=== PATIENT | male | born 1945 | race Caucasian/White ===

== ENCOUNTER 2020-09-02 08:19 | Day surgery (SDC) | payer MEDICARE ==
[2020-08-31 11:42] VITALS: BMI 26.7
[2020-09-02 09:12] LABS: Hemoglobin 15.7 g/dL (14.0-18.0)
[2020-09-02] MEDS ORDERED: ePHEDrine 50 MG/ML VIAL ONE (09:33)
[2020-09-02] MEDS ORDERED: Rocuronium Bromide 10 MG/ML (10ML VIAL) ONE (09:33)
[2020-09-02] MEDS ORDERED: PROPOFOL 200 MG/20 ML VIAL ONE (09:33)
[2020-09-02] MEDS ORDERED: Glycopyrrolate 0.2 MG/ML 5 ML SYRINGE ONE (09:33)
[2020-09-02] MEDS ORDERED: Ondansetron PF 4 MG/2 ML Vial ONE (09:33)
[2020-09-02] MEDS ORDERED: Lidocaine 1% PF 5 ML VIAL ONE (09:33)
[2020-09-02] MEDS ORDERED: PHENYLEPHRINE-NS 100 MCG/ML 10 ML SYRINGE ONE (09:33)
[2020-09-02] MEDS ORDERED: Bacitracin Zinc Ointment 30 gm TUBE ONE (10:44)
[2020-09-02] MEDS ORDERED: EPINEPHrine 1 MG/ML AMP ONE (10:44)
[2020-09-02] MEDS ORDERED: Ciprofloxacin 0.2% Otic (0.25ML CONTAINER) ONE (10:44)
[2020-09-02] MEDS ORDERED: Lidocaine 1% (PF) 30 ML VIAL ONE (10:44)
[2020-09-02] MEDS ORDERED: Fentanyl 100 MCG/2 ML VIAL ONE (10:53)
[2020-09-02] MEDS ORDERED: Midazolam HCl 2 mg/2 ml Vial ONE (10:53)
[2020-09-02] MEDS ORDERED: Promethazine HCl 25 MG/ML VIAL ONE (13:07)
--- NOTE | 2020-09-03 12:33 | EKG ---
Test Reason : PREOP Blood Pressure : / mmHG Vent. Rate : 075 BPM Atrial Rate : 075 BPM P-R Int : 172 ms QRS Dur : 100 ms QT Int : 430 ms P-R-T Axes : 069 038 116 degrees QTc Int : 480 ms Normal sinus rhythm Non-specific intra-ventricular conduction delay Prolonged QT Abnormal ECG No previous ECGs available Confirmed by URBANO LUTZ ([id number]) on 09/03/2020 12:32:38 PM Referred By: MARY Confirmed By:URBANO LUTZ
--- NOTE | 2020-09-03 13:14 | OP ---
DATE OF PROCEDURE: 09/02/2020 PREOPERATIVE DIAGNOSES: Left chronic otitis media, left otorrhea, left tympanic membrane perforation. POSTOPERATIVE DIAGNOSES: Left chronic otitis media, left otorrhea, left tympanic membrane perforation. PROCEDURE PERFORMED: Left tympanomastoidectomy with 2 hours of facial nerve monitoring. 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 A complete mastoidectomy was performed in addition to tympanic membrane repair using temporalis fascia. DESCRIPTION OF PROCEDURE: The patient was identified and brought to the operating room, placed on the operative table in supine position. General endotracheal anesthesia was obtained. The patient was positioned for surgery. A standard canal injection was done with 1% lidocaine and 1:50,000 epinephrine. We also created a postauricular injection at that time. The patient was then prepped and draped in sterile fashion and the facial nerve monitor was placed in the orbicularis andrea and orbicularis oculi and documented to be functioning well. We then proceeded with making a postauricular incision and carrying the incision down to the periosteum through the postauricular muscles. Under microscopic visualization, we visualized the tympanic membrane and beaded the marginal epithelium with a straight pick and removed that, allowing for fresh edges along the perforation. We then made a periosteal incision and started to create a tympanomeatal flap. Transcutaneous incision was made in the posterior canal skin that allowed for retraction anteriorly with a Celio catheter and a regular retracting clamp. This then allowed for vertical incisions to be made along the inferior and superior aspects of the tympanomeatal flap and dissection down to the annulus, which was elevated, allowing for access to the middle ear space. The adhesions were removed from both the malleus and the incus and stapes at that time once visualization was allowed. There was dense middle ear disease and the area was copiously irrigated and suctioned. We then turned our attention and placed a cotton ball in the external canal and turned our attention to performing a complete mastoidectomy. The mastoidectomy included the tip of the mastoid and extended down to the lateral sinus and tegmen. Ultimately, the attic was entered by way superiorly, and good ventilation and irrigation were obtained to the middle ear after granulation tissue was removed around the head of the incus. We then placed the underlay graft under the tympanomeatal flap and filled the middle ear space with Cortisporin saturated Gelfoam. The mastoid was also treated with Gelfoam and otic drops. The tympanomeatal flap was then replaced and the external canal packed with moist Gelfoam. The periosteal flap was closed as was the postauricular incision with particular care to reapproximate the postauricular muscles. Sterile dressing was applied as was a Jazmin. The remainder of the external canal was filled bacitracin and a cotton ball was placed in the external meatus. The patient was awakened and extubated and taken to the recovery room in a stable condition to discharge home. Job ID: [id number]
== END 2020-09-02 14:05 | disposition home or self-care (01) ==
LOC: SDC 08:19
PROVIDERS: ATTEND Specialist
PROC: 0NB60ZZ Excision of Left Temporal Bone, Open Approach (ICD-10-PCS; principal; 2020-09-02)
DX: H66.92 Otitis media, unspecified, left ear (principal); H72.92 Unspecified perforation of tympanic membrane, left ear; H91.90 Unspecified hearing loss, unspecified ear; I25.10 Atherosclerotic heart disease of native coronary artery without angina pectoris; I13.0 Hypertensive heart and chronic kidney disease with heart failure and stage 1 through stage 4 chronic kidney disease, or unspecified chronic kidney disease; E11.22 Type 2 diabetes mellitus with diabetic chronic kidney disease; N18.9 Chronic kidney disease, unspecified; I50.9 Heart failure, unspecified; I25.2 Old myocardial infarction; E78.5 Hyperlipidemia, unspecified; F41.9 Anxiety disorder, unspecified; M19.90 Unspecified osteoarthritis, unspecified site; Z79.01 Long term (current) use of anticoagulants; Z79.82 Long term (current) use of aspirin; Z79.84 Long term (current) use of oral hypoglycemic drugs; Z79.899 Other long term (current) drug therapy; Z86.73 Personal history of transient ischemic attack (TIA), and cerebral infarction without residual deficits; Z87.891 Personal history of nicotine dependence; Z95.1 Presence of aortocoronary bypass graft; Z96.652 Presence of left artificial knee joint
CPT/HCPCS: 36415; 85014; 85018; 93005; 93010; J0171; J2001; J2250; J2405; J2550; J2704; J3010; J3490